=== PATIENT | male | born 1975 | race Hispanic/Latino ===

== ENCOUNTER 2022-04-21 22:39 | Emergency (ER) | payer OTHER ==
[~2022-04-21] VITALS: Ht 167.6 cm; Wt 79.4 kg
[~2022-04-21 22:39] MED LIST: BENZ-39 PO; DOXY-336 PO; PRED20TA3 PO
[2022-04-21] MEDS ORDERED: MIDAZOLAM HCL 1 MG/ML 2ML VIAL ONE (23:13)
[2022-04-21] MEDS ORDERED: KETAMINE HCL 100 MG/ML 5ML VIAL IJ ONE ×2 (23:13→23:45)
[2022-04-21] MEDS ORDERED: KETAMINE 50MG/ML SYRINGE 100 MG in 0.9%NACL 100ML 100 ML IV ONE (23:30)
[2022-04-21] MEDS ORDERED: MIDAZOLAM HCL 1 MG/ML 2ML VIAL IVP ONE (23:30)
[2022-04-22 02:32] VITALS: BP 125/81
== END 2022-04-22 02:57 | disposition home or self-care (01) ==
LOC: EDH 22:39
DX: S43.005A Unspecified dislocation of left shoulder joint, initial encounter (principal); F20.9 Schizophrenia, unspecified; Z79.52 Long term (current) use of systemic steroids; W06.XXXA Fall from bed, initial encounter; Y93.89 Activity, other specified; Y92.89 Other specified places as the place of occurrence of the external cause; Y99.8 Other external cause status
CPT/HCPCS: 99285; 23650; 73030 ×2; 99152; J2250; J3490

== ENCOUNTER 2022-04-25 15:10 | Emergency (ER) | payer OTHER ==
[~2022-04-25] VITALS: Ht 170.2 cm; Wt 80.7 kg
[2022-04-25] MEDS ORDERED: KETOROLAC 15MG/ML VIAL (15MG/ML) IV ONE ×2 (19:30)
[2022-04-25] MEDS ORDERED: LORAZEPAM 2 MG/ML 1 ML VIAL IVP ONE ×2 (19:30)
[2022-04-25] MEDS ORDERED: 0.9% NACL 500ML IV.SOLN 500 ML IV ONE (19:30)
[2022-04-25] MEDS ORDERED: MIDAZOLAM HCL 5 MG/ML 2ML VIAL IV ONE (20:35)
[2022-04-25] MEDS ORDERED: ONDANSETRON 4MG INJ ONE (20:35)
[2022-04-25] MEDS ORDERED: KETAMINE HCL 100 MG/ML 5ML VIAL IJ ONE (20:35)
[2022-04-25] MEDS ORDERED: MIDAZOLAM HCL 1 MG/ML 2ML VIAL IVP ONE (21:00)
[2022-04-25] MEDS ORDERED: ONDANSETRON 4MG INJ IVP ONE (21:00)
[2022-04-25] MEDS ORDERED: MIDAZOLAM HCL 1 MG/ML 5ML VIAL IVP ONE (21:00)
[2022-04-26 00:10] VITALS: BP 134/68
== END 2022-04-26 00:08 | disposition home or self-care (01) ==
LOC: EDH 15:10
DX: S43.015A Anterior dislocation of left humerus, initial encounter (principal); F20.9 Schizophrenia, unspecified; F41.9 Anxiety disorder, unspecified; Z79.52 Long term (current) use of systemic steroids; Z86.19 Personal history of other infectious and parasitic diseases; W01.0XXA Fall on same level from slipping, tripping and stumbling without subsequent striking against object, initial encounter; Y93.89 Activity, other specified; Y92.89 Other specified places as the place of occurrence of the external cause; Y99.8 Other external cause status
CPT/HCPCS: 99285; 23650; 96374; 96375; 96361 ×2; 73030 ×2; J7040; J2405; J2060; J3490; J1885; J2250

== ENCOUNTER 2022-05-20 00:41 | Emergency (ER) | payer OTHER ==
[~2022-05-20] VITALS: Ht 167.6 cm; Wt 74.8 kg
[2022-05-20 01:37] LABS: BASOPHILS % (AUTO) 0.3 % (0.0-5.0); EOSINOPHILS % (AUTO) 0.1 % (0.0-8.0); HEMATOCRIT 39.1 % (42-54); LYMPHOCYTES % (AUTO) 20.1 % (21.0-51.0); MEAN CORPUSCULAR HEMOGLOBIN 30.7 pg (27.0-33.0); MEAN CORPUSCULAR HGB CONC 36.3 g/dL (32.0-36.0); MEAN CORPUSCULAR VOLUME 84.6 fL (79-99); NEUTROPHILS % (AUTO) 68.2 % (40.0-77.0); PLATELET COUNT (AUTO) 262 K/uL (130-400); RED BLOOD CELL COUNT(AUTO) 4.62 MIL/uL (4.50-6.20); RED CELL DISTRIBUTION WIDTH 12.8 % (11.0-15.5)
[2022-05-20 01:45] LABS: CARBON DIOXIDE 26 mmol/L (21-32); CHLORIDE 99 mmol/L (101-111); GLOMERULAR FILTR. RATE CALC 86 mL/min (>60); GLUCOSE,RANDOM 99 mg/dL (70-105); SODIUM SERUM 136 mmol/L (136-145); UREA NITROGEN, BLOOD 7 mg/dL (7-18)
[2022-05-20 01:51] LABS: ALANINE AMINOTRANSFERASE 105 U/L (12-78); ALBUMIN 3.7 g/dL (3.5-5.0); ALCOHOL, BLOOD < 3 mg/dL (0-10); ASPARTATE AMINOTRANSFERASE 62 U/L (10-37); SALICYLATE 4.4 mg/dL (2.8-20.0); TOTAL PROTEIN, SERUM 7.8 g/dL (6.0-8.3)
[2022-05-20 01:54] LABS: ACETAMINOPHEN < 1 mcg/mL (10-29)
[2022-05-20] MEDS ORDERED: KCL 20 MEQ ERTAB PO ONE (03:00)
[2022-05-20] MEDS ORDERED: GUAIFENESIN-DM 200/20 MG 10 ML PO ONE (04:30)
[2022-05-20] MEDS ORDERED: MAG/ALUM/SIMETH 30 ML UDCUP PO ONE (11:30)
[2022-05-20] MEDS ORDERED: LIDOCAINE HCL 2% VISCOUS 15 ML UDCUP PO ONE (11:30)
[2022-05-20 11:44] LABS: AMPHET/METH SCREEN,URINE POSITIVE (NEGATIVE); APPEARANCE,URINE CLEAR (CLEAR); BARBITURATE SCREEN, URINE NEGATIVE (NEGATIVE); BENZODIAZEPINES SCREEN,URINE NEGATIVE (NEGATIVE); BILIRUBIN,URINE NEGATIVE (NEGATIVE); CANNABINOID SCREEN,URINE NEGATIVE (NEGATIVE); COCAINE SCREEN,URINE POSITIVE (NEGATIVE); COLOR,URINE COLORLESS (YELLOW); GLUCOSE, URINE (UA) NEGATIVE (NEGATIVE); KETONES,URINE NEGATIVE (NEGATIVE); LEUKOCYTE ESTERASE ,URINE NEGATIVE Leu/uL (NEGATIVE); NITRATE,URINE NEGATIVE (NEGATIVE); OCCULT BLOOD,URINE NEGATIVE (NEGATIVE); OPIATE SCREEN,URINE NEGATIVE (NEGATIVE); PHENCYCLIDINE SCREEN,URINE NEGATIVE (NEGATIVE); PROTEIN,URINE NEGATIVE (NEGATIVE); UROBILINOGEN,URINE 0.2 mg/dL (0.2-1.0)
[2022-05-21] MEDS ORDERED: MAG/ALUM/SIMETH 30 ML UDCUP PO ONE (08:30)
[2022-05-21] MEDS ORDERED: MAG/ALUM/SIMETH 30 ML UDCUP ONE ×2 (08:35→20:30)
[2022-05-21] MEDS ORDERED: HYDROMORPHONE 1 MG INJ IVP ONE (14:30)
[2022-05-21] MEDS ORDERED: [UNRECOGNIZED DRUG - OTHER] IV SCH (14:30)
[2022-05-21] MEDS ORDERED: KETAMINE IV SCH (14:30)
[2022-05-21] MEDS ORDERED: HYDROMORPHONE 1 MG INJ IVP SCH (15:00)
[2022-05-21] MEDS ORDERED: KETAMINE HCL 100 MG/ML 5ML VIAL IJ ONE ×3 (15:18→22:53)
[2022-05-21] MEDS ORDERED: KETAMINE 50MG/ML SYRINGE 50 MG/ML DISP.SYRIN IV ONE ×2 (15:22)
[2022-05-21] MEDS ORDERED: IBUP-1493 PO (16:18)
[2022-05-21 17:39] LABS: CREATININE 0.9 mg/dL (0.5-1.5); POTASSIUM 3.6 mmol/L (3.5-5.1)
[2022-05-21] MEDS ORDERED: LIDOCAINE HCL 2% VISCOUS 15 ML UDCUP ONE (20:30)
[2022-05-21] MEDS ORDERED: ZIPRASIDONE MESYLATE 20 MG/VIAL IM ONE (22:18)
[2022-05-21] MEDS ORDERED: DiphenhydrAMINE HCL 50 MG/ML VIAL ONE (22:18)
[2022-05-21] MEDS ORDERED: LORAZEPAM 2 MG/ML 1 ML VIAL ONE (22:19)
[2022-05-21] MEDS ORDERED: BUSPIRONE HCL 5 MG TABLET PO SCH (22:30)
[2022-05-21] MEDS ORDERED: MIDAZOLAM HCL 5 MG/ML 2ML VIAL IV ONE (22:52)
[2022-05-21] MEDS ORDERED: ONDANSETRON 4MG INJ ONE (22:59)
[2022-05-21] MEDS ORDERED: MIDAZOLAM HCL 1 MG/ML 2ML VIAL IVP ONE (23:00)
[2022-05-22] MEDS ORDERED: BUSPIRONE HCL 5 MG TABLET PO PRN (00:30)
[2022-05-22] MEDS ORDERED: QUETIAPINE FUMARATE 100 MG TAB PO PRN (00:30)
[2022-05-22] MEDS ORDERED: QUET300T2 PO (00:32)
[2022-05-22] MEDS ORDERED: BUSP15 PO (00:32)
[2022-05-22 09:52] VITALS: BP 119/71
[2022-05-22] MEDS ORDERED: QUETIAPINE FUMARATE 100 MG TAB PO SCH (21:00)
== END 2022-05-22 09:59 | disposition home or self-care (01) ==
LOC: EDH 00:41
DX: S43.005A Unspecified dislocation of left shoulder joint, initial encounter (principal); R45.850 Homicidal ideations; F25.9 Schizoaffective disorder, unspecified; Z20.822 Contact with and (suspected) exposure to COVID-19; F17.200 Nicotine dependence, unspecified, uncomplicated; Z79.52 Long term (current) use of systemic steroids; Z90.49 Acquired absence of other specified parts of digestive tract; X58.XXXA Exposure to other specified factors, initial encounter; Y93.89 Activity, other specified; Y92.89 Other specified places as the place of occurrence of the external cause; Y99.8 Other external cause status
CPT/HCPCS: 99291; 87635; 80053; 80305; 85025; 36415 ×2; 81003; 23650; 96374; 96375 ×2; 99153; 99152; 96376; 96372; 80048; G0481; C9803; J1200; J1170 ×2; J2405; J2060; J3490 ×5; J3486; J2250